=== PATIENT | female | born 1985 | race Caucasian/White ===

== ENCOUNTER 2021-08-10 06:19 | Emergency (ER) | payer OTHER, MEDICAID, SELFPAY ==
[2021-08-10 06:36] VITALS: BP 139/87; PULSE 88; RESP 18; TEMP 37.1; O2SAT 100
--- NOTE | 2021-08-10 07:06 | ED.FALL ---
HPI - Fall General Chief Complaint: Fall Stated Complaint: FELL ON LEFT SIDE OF BODY AND IN PAIN Time Seen by Provider: 08/10/21 06:58 Source: patient Mode of arrival: Ambulatory History of Present Illness HPI Narrative: Patient is a 36-year-old female who has no past medical history presenting today with left-sided rib pain. She says she slipped and fell last night landing on her heater. She says it was not on she did not burning. She took ibuprofen at 5:30 a.m. this morning. Still having pain and hurts whenever she moves or breathes. Related Data Allergies Allergy/AdvReac Type Severity Reaction Status Date / Time No Known Drug Allergies Allergy Verified 08/10/21 06:36 Review of Systems Review of Systems Narrative: GENERAL: Denies chills, fatigue, malaise, fever, sweats, travel HEENT: Denies sinus pain, ear pain, sore throat, difficulty swallowing, neck pain RESPIRATORY: See HPI CARDIOVASCULAR: Denies chest pain, palpitations, orthopnea, edema GASTROINTESTINAL: Denies nausea, vomiting, abdominal pain, diarrhea, constipation, melena. : Denies dysuria, frequency, incontinence, hematuria, urinary retention, flank pain. MUSCULOSKELETAL: Denies weakness, joint pain, or bony pain SKIN: No rash, no erythema, no pruritus NEUROLOGIC: Denies weakness, dizziness, headache, numbness, change in speech, confusion PSYCHIATRIC: No concerning psychosocial issues. 12 point review of systems is negative except for those stated above and HPI Patient History Social History Smoking Status: Current every day smoker Smoking Status: Current every day smoker tobacco type: cigarettes alcohol intake frequency: a few times a week Alcohol type: hard liquor Substance Use Type: does not use Exam Initial Vital Signs Initial Vital Signs: Vital Signs Temperature 98.7 F 08/10/21 06:36 Pulse Rate 88 08/10/21 06:36 Respiratory Rate 18 08/10/21 06:36 Blood Pressure 139/87 08/10/21 06:36 Pulse Oximetry 100 08/10/21 06:36 GENERAL: Alert while 36 female and in no acut] distress. HEENT: Head atraumatic,EOMI, pupils reactive, face symmetric,[mois] mucous membranes CARDIOVASCULAR: Regular rate and rhythm without murmurs, rubs or gallops. RESPIRATORY: Pain left ribs no paradoxical movement contusion or sign of trauma EXTREMITIES: Normal range of motion, no clubbing or edema. Neurovascularly intact NEUROLOGICAL: Alert and oriented x4 SKIN: Warm, dry, no laceration, no petechiae, no rashes or lesions. Course Orders Ordered: ED Orders 08/10/21 07:27 XR ribs LT min 3V w CXR1V Stat Discontinued Medications Acetaminophen (Acetaminophen 325 Mg Tablet) 975 mg PO NOW ONE Stop: 08/10/21 07:28 Last Admin: 08/10/21 08:51 Dose: 975 mg Documented by: HIRA Vital Signs Vital signs: Vital Signs - 8 hr 08/10/21 06:36 08/10/21 08:57 Temperature 98.7 F Pulse Rate 88 81 Respiratory Rate 18 20 Blood Pressure 139/87 120/85 Pulse Oximetry 100 100 MDM - Fall Imaging Data rib xray: Radiologist's Impression: Signed Patient: LEE ANN NORRIS MR#: [id number] : 1985 Acct:[id number] Age/Sex: 36 / F Date of Service: 08/10/21 Loc: ED Accession Number: [id number] ?? Procedure: XR ribs LT min 3V w CXR1V Ordering Provider: Mariela Soto D.O. PROCEDURE:? XR RIBS LT MIN 3V W CXR1V ? INDICATIONS:? fall pain ? TECHNIQUE:? 2 views of the left ribs were acquired, along with a single view chest.? ? COMPARISON:? None. ? FINDINGS:? ? Surgical changes and devices:? None.? ? Bones and chest wall:? No fractures or dislocations.? No suspicious bony lesions.? Overlying soft tissues appear unremarkable.? ? Lungs and pleura:? No pleural effusions or pneumothorax.? Lungs appear clear.? ? Mediastinum:? Mediastinal contours appear normal.? Heart size is normal.? ? IMPRESSION:? No gross displaced left rib fracture.? No acute cardiopulmonary pathology. ? ? Dictated by: Deejay Kline M.D. on 08/10/2021 at 8:28 ? ? Approved by: Deejay Kilne M.D. on 08/10/2021 at 8:33? [facility] Narrative Medical decision making narrative: Patient had a mechanical fall. Pain on left ribs no obvious sign of trauma x-ray is negative. Recommend supportive care only. She is given Tylenol here in the ED. Discharge Plan Departure Patient Disposition: Home Clinical Impression: Contusion of rib Instructions: DI for Rib Contusion Activity Restrictions/Additional Instructions: *You have been diagnosed with rib contusion *What to do: At this time he did not break any bones. However this can still be very painful. Splint with a pillow. *Continue to take medications as directed Ibuprofen 600 mg every 6-8 hours if needed for [id number] pain Tylenol 1000 mg every 6 hours if needed for [id number] pain *Follow up with your primary care provider in 2-3 days or call [phone] *Return to ER if you should have increasing pain, shortness of breath or any new, worsening or concerning symptoms
--- NOTE | 2021-08-10 07:27 | DI.RAD.S_ITS ---
PROCEDURE: XR RIBS LT MIN 3V W CXR1V INDICATIONS: fall pain TECHNIQUE: 2 views of the left ribs were acquired, along with a single view chest. COMPARISON: None. FINDINGS: Surgical changes and devices: None. Bones and chest wall: No fractures or dislocations. No suspicious bony lesions. Overlying soft tissues appear unremarkable. Lungs and pleura: No pleural effusions or pneumothorax. Lungs appear clear. Mediastinum: Mediastinal contours appear normal. Heart size is normal. IMPRESSION: No gross displaced left rib fracture. No acute cardiopulmonary pathology. Dictated by: Deejay Kline M.D. on 08/10/2021 at 8:28 Approved by: Deejay Kline M.D. on 08/10/2021 at 8:33
[2021-08-10] MEDS: ACETAMINOPHEN 325 MG TABLET 975 MG PO (08:51)
[2021-08-10 08:57] VITALS: BP 120/85; PULSE 81; RESP 20; O2SAT 100
== END 2021-08-10 08:58 | disposition home or self-care (01) ==
PROVIDERS: Emergency Provider Emergency Medicine
DX: S20.212A Contusion of left front wall of thorax, initial encounter (principal); W19.XXXA Unspecified fall, initial encounter
CPT/HCPCS: 71101; 99283